=== PATIENT | female | born 1995 | race African-American/Black ===

== ENCOUNTER 2021-08-06 19:10 | Emergency (ER) | payer OTHER ==
[~2021-08-06] VITALS: Ht 172.7 cm; Wt 68.0 kg
[2021-08-06] MEDS ORDERED: TETANUS, DIPHTHERIA, PERTUSSIS VAC/PF 0.5ML (>10YR OLD) IM ONE (20:30)
[2021-08-06] MEDS ORDERED: LIDOCAINE HCL/EPINEPHRINE 1%-EPI 1:100,000 30 ML VIAL INFIL ONE (21:45)
[2021-08-06] MEDS ORDERED: LIDOCAINE HCL/EPINEPHRINE 1%-EPI 1:100,000 10 ML VIAL INFIL NR (22:00)
[2021-08-07] MEDS ORDERED: BACITRACIN/POLYMYXIN B SULFATE OINT 15GM TOP ONE (00:15)
[2021-08-07] MEDS ORDERED: ACETAMINOPHEN 325MG TABLET PO ONE (00:15)
[2021-08-07] MEDS ORDERED: AMOX-424 MT (00:36)
[2021-08-07 00:48] VITALS: BP 128/76
== END 2021-08-07 00:49 | disposition home or self-care (01) ==
LOC: ER 19:10
DX: S61.011A Laceration without foreign body of right thumb without damage to nail, initial encounter (principal); W01.198A Fall on same level from slipping, tripping and stumbling with subsequent striking against other object, initial encounter; Y93.89 Activity, other specified; Y92.89 Other specified places as the place of occurrence of the external cause
CPT/HCPCS: 12001; 73140; 90471; 90715; 99283; J3490